=== PATIENT | male | born 1965 | race Caucasian/White ===

== ENCOUNTER 2020-09-03 06:36 | Observation (INO) ==
--- NOTE | 2020-07-18 13:55 | PAT Medication Instructions ---
Medication Instructions Date of Service July 18, 2020 Home Medications acetaminophen [Tylenol] 325 mg PO DAILY PRN acetaminophen-codeine [Tylenol-Codeine #3] 1 tab PO TID PRN cholecalciferol (vitamin D3) [Vitamin D3] 25 mcg PO QAM loratadine 10 mg PO DAILY PRN multivitamin 1 tab PO QAM potassium 99 mg PO QAM vitamin B complex 2 tab PO QAM diclofenac sodium [Voltaren] 1 g TOPICAL QID PRN esomeprazole magnesium [Nexium] 40 mg PO QAM STOP taking 24 hours before surgery diclofenac sodium [Voltaren] 1 g TOPICAL QID PRN DO NOT take the morning of surgery cholecalciferol (vitamin D3) [Vitamin D3] 25 mcg PO QAM loratadine 10 mg PO DAILY PRN multivitamin 1 tab PO QAM potassium 99 mg PO QAM vitamin B complex 2 tab PO QAM Take morning of surgery With a small sip of water, OTHERWISE NOTHING TO EAT OR DRINK AFTER MIDNIGHT: acetaminophen [Tylenol] 325 mg PO DAILY PRN (okay to take up to 4 hours prior to surgery if needed) acetaminophen-codeine [Tylenol-Codeine #3] 1 tab PO TID PRN (okay to take up to 4 hours prior to surgery if needed) esomeprazole magnesium [Nexium] 40 mg PO QAM Take evening before surgery acetaminophen [Tylenol] 325 mg PO DAILY PRN (if needed) acetaminophen-codeine [Tylenol-Codeine #3] 1 tab PO TID PRN (if needed) loratadine 10 mg PO DAILY PRN (if needed) Other Notes If you have any questions please call us at [phone] or [phone] or [phone] or [phone]
--- NOTE | 2020-07-24 10:44 | Anesthesiology Consultation ---
Date of Service July 24, 2020 Assessment & Plan (1) Encounter for pre-operative examination: COVID screening: Per assessment on 07/24: Travel screen negative, no known COVID- 19 positive contacts or current COVID-19 related symptoms. 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 No recent COVID positive students per patient. Follows COVID precaution guidelines. Patient fully vaccinated. Surgeon arranging preop COVID testing (scheduled 08/28; [place]). Awaiting results. Chart Review Chart Review: Acceptable Risk for Surgery and Patient seen in Pre Admission Testing Teaching & Discussion Pre-Anesthesia Teaching/Discussion Notes: Instructed NPO after midnight before surgery,except medications with 15 cc of water. Medication instructions provided according to the PAT guidelines. History Surgery Operation Date: 09/03/20 07:00 Proposed Procedures p Right Total Knee Arthroplasty - Krishan Suggs MD Height/Weight Height: 5 ft 8 in Weight: 143.4 kg Allergies Allergy/AdvReac Type Severity Reaction Status Date / Time Latex, Natural Rubber Allergy Unknown Itching Verified 07/24/20 10:42 Medications Home Medications Medication Instructions Recorded Confirmed Last Taken acetaminophen [Tylenol] 325 mg PO DAILY PRN 05/03/20 07/16/20 Unknown acetaminophen-codeine 1 tab PO TID PRN 05/03/20 07/16/20 Unknown [Tylenol-Codeine #3] cholecalciferol (vitamin D3) 25 mcg PO QAM 05/03/20 07/16/20 Unknown [Vitamin D3] loratadine 10 mg PO DAILY PRN 05/03/20 07/16/20 Unknown multivitamin 1 tab PO QAM 05/03/20 07/16/20 Unknown potassium 99 mg PO QAM 05/03/20 07/16/20 Unknown vitamin B complex 2 tab PO QAM 05/03/20 07/16/20 Unknown diclofenac sodium [Voltaren] 1 g TOPICAL QID PRN 07/16/20 07/16/20 Unknown esomeprazole magnesium [Nexium] 40 mg PO QAM 07/16/20 07/16/20 Unknown Past Medical History Medical History Chronic back pain + Neck Chronic shoulder pain GERD (gastroesophageal reflux disease) occasional History of sleep apnea Symptoms "resolved" after weight loss (no formal retesting) Morbid obesity Osteoarthritis Exercise / Class Metabolic Activity II 4-5 Yardwork/Stairs/Walk up hill (one flight of stairs (no chest pain, no sob)) Past Family History Family History Father Esophageal cancer Other No family history of adverse response to anesthesia Past Surgical History Surgical History History of esophagogastroduodenoscopy (EGD) History of gastric bypass + hiatal hernia repair (2014)- 100# weight loss S/P debridement LLE x2 Past Anesthesia History No Hx of Anesthesia Complications and No Family Hx of Anesthesia Complications History of PONV No Hx of PONV and No Hx of Motion Sickness Social History Smoking Status: Former smoker Do You Dip or Chew Tobacco: No Smoking End Date: Quit 15+ years ago Hx Alcohol Use: No Hx Substance Use: No substance use type: does not use Review of Systems Patient denies chest pain, shortness of breath, dyspnea on exertion, fever, chills, cough, wheezing, palpitations. Physical Exam Vital Signs VITALS BP 134/72 P 67 TEMP 98.2 SP02 98%RA RESP 16 PHYSICAL Full cervical extension range of motion. Full TMJ range of motion. TMD 4 finger breaths Mallampati Score 3 Dentition: missing molars, + several crowns Lungs: clear throughout to auscultation Cardiac: regular rate and rhythm, no murmurs noted Spine: normal Carotid arteries: negative bruit Extremities: LLE non-pitting edema (chronic after remote infection/debridements > wears compression stocking) Testing Laboratory Results 07/24/20 11:42 07/24/20 11:42 PT 9.8 Seconds (9.0-12.0) 07/24/20 11:42 INR 1.0 (0.9-1.1) 07/24/20 11:42 APTT 27.4 Seconds (21.0-31.0) 07/24/20 11:42 Blood Type O Positive 07/24/20 11:42 Antibody Screen NEGATIVE 07/24/20 11:42 Electrocardiogram Date: 07/24/20 NSR with sinus arrhythmia at 67bpm. Chest X-Ray Date: 07/24/20 Findings: + NAD
--- NOTE | 2020-07-24 12:15 | XRay Report ---
XR chest Pre-admission PA/Lat CLINICAL HISTORY: Preoperative evaluation. COMPARISON STUDY: No previous studies for comparison. FINDINGS: Lung volumes are normal. Lungs are clear. There is no pneumothorax or pleural effusion. Car diac size is normal. Mediastinal contours are normal. There is no evidence for pulmonary edema. IMPRESSION: No acute cardiopulmonary findings. ACT 112: Negative or not required by law. Electronically signed by: Ashutosh Mao M.D. 07/24/2020 12:14 PM
[2020-07-24 12:28] LABS: Basophils # (auto) 0.04 K/uL (0-0.2); Basophils % (auto) 0.5 %; Eosinophils # (auto) 0.08 K/uL (0-0.5); Hematocrit (blood only) 41.5 % (42-52); Hemoglobin 14.1 g/dL (14.0-18.0); Immature Granulocytes # (auto) 0.01 K/uL (0.00-0.02); Immature Granulocytes % (auto) 0.1 %; Lymphocytes # (auto) 2.27 K/uL (1.2-3.4); Lymphocytes % (auto) 27.8 %; Mean Corpuscular Hemoglobin 29.5 pg (25-34); Mean Corpuscular Volume 86.8 fL (80-100); Mean Platelet Volume 10.2 fL (7.4-10.4); Monocytes # (auto) 0.57 K/uL (0.11-0.59); Neutrophils # (auto) 5.19 K/uL (1.4-6.5); Neutrophils % (auto) 63.6 %; Platelet Count 242 K/uL (130-400); RDW Coefficient of Variation 14.1 % (11.5-14.5); RDW Standard Deviation 44.6 fL (36.4-46.3); Red Blood Count 4.78 M/uL (4.7-6.1); White Blood Count 8.16 K/uL (4.8-10.8)
[2020-07-24 12:39] LABS: BUN Creatinine Ratio 11.9 (10-20); Calcium 8.6 mg/dl (8.5-10.1); Creatinine Clr Calc Pharmacy 130.5 ml/min; Est GFR (African American) 111.3; Potassium 4.2 mmol/L (3.5-5.1)
[2020-07-24 12:40] LABS: C Reactive Protein 0.44 mg/dl (0-0.29); Partial Thromboplastin Time 27.4 Seconds (21.0-31.0); Prothrombin Time 9.8 Seconds (9.0-12.0)
--- NOTE | 2020-07-24 16:41 | Electrocardiogram Report ---
Test Reason : Blood Pressure : / mmHG Vent. Rate : 067 BPM Atrial Rate : 067 BPM P-R Int : 180 ms QRS Dur : 094 ms QT Int : 362 ms P-R-T Axes : 058 076 048 degrees QTc Int : 382 ms Normal sinus rhythm with sinus arrhythmia Normal ECG No previous ECGs available Confirmed by Dimitry Reyna ([id number]) on 07/24/2020 4:40:48 PM Referred By: Krishan Suggs Confirmed By:Dimitry Reyna
--- NOTE | 2020-08-31 14:50 | History and Physical Report ---
DATE OF ADMISSION: 09/03/2020 CHIEF COMPLAINT: Bilateral knee pain and discomfort, right side greater than left. 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 We have been injecting his knees every 3 months for several years. Initially helped him quite a bit. This has become less successful over time. He is having more and more trouble walking and getting around. He has pain all the time, increased as the day goes on. He is having more difficulty standing and teaching due to his pain and discomfort. He was scheduled to have surgery in the past, but had to cancel due to the COVID epidemic. He now would like to proceed with surgical treatment. Of note, the patient does have a history of erysipelas of his left leg debrided about 10 years ago. He has had no subsequent infections or surgeries on this leg. PAST MEDICAL HISTORY: 1. Significant for obesity, status post gastric bypass surgery 2014. 2. Erysipelas infection 2011, left lower extremity. 3. Gastroesophageal reflux disease. 4. Sleep apnea with CPAP machine. PAST SURGICAL HISTORY: Include: 1. Left leg debridement x2 in 2011. 2. Gastric bypass surgery. ALLERGIES: LATEX. CURRENT MEDICATIONS: Include: 1. Tylenol with Codeine. 2. Multivitamin. 3. B12. 4. Vitamin D supplements. 5. Potassium supplements. 6. Loratadine. SOCIAL HISTORY: A 55-year-old male. He teaches at [employer]. Lives in [place]. He is . Does not smoke. No significant alcohol intake. FAMILY HISTORY: Noncontributory. REVIEW OF SYSTEMS: Negative for diabetes, neurologic problem, vascular problems or bleeding disorders. He does have this history of left leg infection in the past. He has had no problems in the past 10 years. He does wear compression stocking. He cannot take NSAIDs due to gastric bypass. PHYSICAL EXAMINATION: GENERAL: Shows a pleasant, fairly large middle-aged male. HEENT: Benign. NECK: Supple, no lymphadenopathy. LUNGS: Clear to auscultation. HEART: Has a regular rate and rhythm. ABDOMEN: Soft, nontender, nondistended. EXTREMITIES: Grossly neurovascularly intact except as follows: Examination of the right knee reveals the patient walks with a bit of a waddling gait. Fairly neutral alignment to his knee. He has got a moderate sized knee effusion. He has got bony hypertrophy medially and laterally. His knee is pretty stiff with about a 10-degree flexion contracture, and only can bend to 105 degrees. No pain with hip motion. Examination of the left leg reveals the KAMARI stocking in place. Some mild diffuse swelling. Range of motion is 5-110. No instability. X-RAYS: X-rays of the right knee reveal advanced right knee tricompartment DJD. He has got a little bit of joint space remaining. He has got degenerative disease in all 3 compartments. Similar findings on the left side. He also has patellofemoral disease. 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 The right knee is bothering him more than the left. He would like to proceed with surgical treatment. PLAN: We are going to proceed with a right knee replacement. The risks and benefits of this procedure were explained to the patient including but not limited to DVT, PE, , infection, neurological injury, vascular injury, bleeding problem, pain, limited range of motion, stiffness, failure to relieve his symptoms, incomplete relief of symptoms, need for further surgery in future, fracture, leg length inequality, nerve palsy, need for revision surgery. The patient understands and desires to proceed. Informed consent was obtained. He has never had any infections in his right leg, but we will probably use some additional vancomycin just due to his history. We will put this in the cement. I do think he is at slight increased risk of infection, but I think it is small. We did do a sed rate, which is normal. C-reactive protein just very slightly elevated. No signs of current infection. We will be very aggressive as far as edema control using TEDs and SCDs. He is planning to do outpatient therapy and be discharged to home.
[~2020-09-03 06:36] MED LIST: ACETAMINOPHEN 500 MG TAB PO SCH; BUPIVACAINE 0.5 % 5 MG/1 ML PF 10ML VIAL ONE; BUPIVACAINE LIPOSOME/PF 266 MG, BUPIVACAINE/EPINEPHRINE 50 ML, SODIUM CHLORIDE 0.9% 30 ... INFIL SCH; EPINEPHrine INJ 1 MG/ML AMP ONE; FAMOTIDINE 20 MG TAB PO SCH; GABAPENTIN 600 MG DOSE PO SCH; LR 500ML BOLUS, THEN 15ML/HR IV SCH; LR 60ML/HR IV SCH; METOCLOPRAMIDE HCL 10 MG TABLET PO SCH; ROPIVACAINE 0.5% 5 MG/ML 30 ML VIAL ONE; Scopolamine 1 MG TDSY TD SCH; TRANEXAMIC ACID 1,000 MG **IV Intra-op IV SCH
--- NOTE | 2020-09-03 06:56 | History & Physical Bridge Note ---
Date of Service September 03, 2020 History & Physical Bridge Note I have examined the patient, reviewed the History & Physical and in the interval since the performance of the History & Physical I have noted the following changes of clinical significance: no changes noted
[2020-09-03] MEDS ORDERED: PROPOFOL IV EMULSION 10 MG/ML 20 ML VIAL IV ONE ×2 (07:15→09:20)
[2020-09-03] MEDS ORDERED: fentaNYL citrate 100 MCG/2 ML VIAL ONE ×3 (07:16→09:42)
[2020-09-03] MEDS ORDERED: MIDAZOLAM HCL 1 MG/ML 2ML VIAL ONE (07:16)
[2020-09-03] MEDS ORDERED: BETAMETH SOD PHOS/ACETATE IA 6 MG/ML IM ONE (08:09)
[2020-09-03] MEDS ORDERED: SODIUM CHLORIDE 0.9% PF 50 ML VIAL ONE (08:44)
[2020-09-03] MEDS ORDERED: BUPIVACAINE LIPOSOME 1.3% 266 MG/20 ML VIAL ONE (08:44)
[2020-09-03] MEDS ORDERED: VANCOMYCIN HCL 1000MG/20ML VIAL ONE (08:45)
[2020-09-03] MEDS ORDERED: BUPIVACAINE 0.25% 30 ML VIAL ONE (08:45)
[2020-09-03] MEDS ORDERED: BUPIVACAINE 0.5 % 5 MG/1 ML MPF 30ML VIAL ONE (08:45)
[2020-09-03] MEDS ORDERED: EPINEPHrine INJ 1 MG/ML AMP ONE (08:45)
--- NOTE | 2020-09-03 08:46 | History & Physical Bridge Note ---
Date of Service September 03, 2020 History & Physical Bridge Note I have examined the patient, reviewed the History & Physical and in the interval since the performance of the History & Physical I have noted the following changes of clinical significance: no changes noted. Patient requesting left knee injection while under anesthesia. Will inject left knee in OR.
[2020-09-03] MEDS ORDERED: ONDANSETRON INJ 2 MG/ML 2 ML VIAL ONE (09:20)
[2020-09-03] MEDS ORDERED: DEXAMETHASONE SOD INJ 4 MG/ML VIAL ONE (09:20)
[2020-09-03] MEDS ORDERED: SUCCINYLCHOLINE CHLORIDE 20 MG/ML 10 ML VIAL IV ONE (09:20)
[2020-09-03] MEDS ORDERED: FLUMAZENIL 0.1 MG/1 ML 10 ML VIAL IV PRN (09:38)
[2020-09-03] MEDS ORDERED: HYDROmorphone INJ 1 MG/ML SYRINGE IV PRN (09:38)
[2020-09-03] MEDS ORDERED: PROMETHAZINE HCL 12.5 MG in SODIUM CHLORIDE 0.9% 50 ML IV PRN (09:38)
[2020-09-03] MEDS ORDERED: LABETALOL HCL IV 5 MG/ML 20ML IV PRN (09:38)
[2020-09-03] MEDS ORDERED: ePHEDrine sulfate 50 MG/ML AMP IV PRN (09:38)
[2020-09-03] MEDS ORDERED: NALOXONE HCL 0.4 MG/1 ML VIAL/CARP IV PRN ×2 (09:38→12:46)
[2020-09-03] MEDS ORDERED: fentaNYL citrate 100 MCG/2 ML VIAL IV PRN (09:38)
[2020-09-03] MEDS ORDERED: ATROPINE SULFATE 0.1 MG/ML 10ML SYR IV PRN (09:38)
[2020-09-03] MEDS ORDERED: ONDANSETRON INJ 2 MG/ML 2 ML VIAL IV PRN ×2 (09:38→12:46)
[2020-09-03] MEDS ORDERED: HYDROmorphone INJ 2 MG/ML SYR/VIAL ONE (09:54)
--- NOTE | 2020-09-03 11:22 | Operative Report ---
Post Operative Report Pre & Post Diagnosis Operation Date: 09/03/20 08:50 Pre-Op Diagnosis: Right Knee Advanced Degenerative Joint Disease, Bilateral Knee Pain and DJD Post-Op Diagnosis: Right Knee Advanced Degenerative Joint Disease, Bilateral Knee Pain and DJD I identified the patient and participated in the time-out.: Yes Procedure Operation Date: 09/03/20 08:50 Actual Procedures p Right Total Knee Arthroplasty(Left) - Krishan Suggs MD s Injection Left Knee(Left) - Krishan Suggs MD Surgeon Krishan Suggs MD Clinical Nurse Educator ZULEMA Roche Estimated Blood Loss 50 Findings Consistent with Post-Op Diagnosis Operative findings revealed advanced tricompartment DJD of the right knee. He had a very large central area of complete cartilage loss of lateral femoral condyle. He had extensive eburnation of the patella and the trochlea. He had some spotty grade 4 changes medially. Moderate-sized joint effusion. Large soft tissue envelope. Fluids 600 cc Specimens Right knee sent for pathology. Anesthesia Type General Regional Complications none Disposition Accompanied Patient To Recovery: No Disposition: Recovery Room Indications Patient is a 55-year-old gentleman is had a long history of bilateral knee pain and discomfort DJD. I been treating him over the years with injections which became less successful over time. He is actually scheduled for surgery in the past but had to be canceled due to the Covid epidemic. Now presents for surgical treatment. Got bilateral knee pain and wanted a an injection into his left knee at the same time. Description of Procedure Operative implants consist of: 1. Biomet Vanguard size 65 right posterior stabilized femoral component. 2. Biomet size 71 tibial tray. 3. 10 mm posterior stabilized polyethylene insert. 4. 31 x 8 all polypatella. The patient was taken to the operating, identified, placed on the operating table supine position but all contractors were properly padded. IV antibiotics tried by anesthesia team. A spinal anesthetic had been attempted in the holding area but unsuccessful. An abductor canal block had been provided in the holding area. A general anesthetic was employed by anesthesia team. Right thigh turn was then placed in the right lower extremities and prepped and draped in usual sterile fashion. The right leg was elevated exsanguinated with use of an Esmarch and tourniquet placed at 350 mmHg. An anterior approach to the right knee was then performed through longitudinal incision centered over the patella. Sharp dissection carried through subcutaneous this down the extensor mechanism. A medial parapatellar arthrotomy incision was made. Some subperiosteal dissection was carried out medially. The fat pad was resected from each patella tendon. Lateral patellofemoral ligament was released. Patella was subluxated laterally. The knee was flexed. The osteophytes were taken off distal femur. The ACL and PCL were then released from distal femur and the tibia subluxated anteriorly. The external tibial alignment jig was then placed in the interface the tibia adjusted 12 mm medially. The proximal tibial cut was then made to remove about 3 to 4 mm of bone from the medial side. Tibia sized to a size 71. We did downsize this in order to get proper rotation. Attention drawn the femur. The distal femur then with a sharp drop with intramedullary canal was suction. A right 5 degree valgus cutting guide was placed. Distal femoral cutting block was pinned in place. Distal femoral cut was made to take an additional 3 mm of bone off distal femur. Femur was then sized to a size 65. Sized exactly to a 65. The AP cutting block was pinned parallel to the epicondylar axis which was 5 degrees of external rotation. Anterior cut, anterior chamfer, posterior cut, posterior chamfer cuts were made. The box cutting guide was placed in just slight lateral and the box cut was made. The knee was flexed. The remnants of the medial and lateral menisci were excised. The osteophytes were taken off the posterior aspect of the femur. Trial femoral component was placed. The tibial tray was pinned in maximum external rotation and the drill and stem punch were used to create defect in proximal tibia for the tibial tray. Knee was then trialed and 10 mm insert fit most appropriately. Attention drawn the patella. The patella was cleaned of all soft tissues. Patella was very eccentrically worn. It was approximately 18 mm in thickness and some spots in about 12 another's. We cut this down to about 12 mm in thickness. Was sized to a size 31 patella. The lug holes were drilled for the 31 patella. The lateral osteophyte was removed. Patella button was placed. Knee was taken through range of motion and the patella tracked nicely with no thumbs test. Attention drawn to place the permanent components. All trial components were removed. Bone plug was placed in the distal femur limit blood loss put a double batch Palacos G cement was mixed. A Biomet Vanguard size 65 right posterior stabilized femoral component, size 71 tibial tray, a 10 mm posterior stabilized polyethylene insert, and a 31 x 8 all polypatella were then cemented in place. Knee was brought out in full extension total cement hardened. Final cement check was then performed. The pericapsular tissues were injected with a total of 100 cc of combination of 20 cc of Exparel, 30 cc normal saline, 50 cc of quarter percent Marcaine with epinephrine. Patient did receive 1 g tranexamic acid but the tourniquet was then let down for turn time 66 minutes. Hemostasis assured use electrocautery. Extensor mechanism closed with combination 1 PDS suture #1 Vicryl suture in a fig [id number] fashion with extensor mechanism checked found to be intact with subcutaneous tissue then closed with 2 Dexon suture in a buried knot fashion. Skin was closed skin cedrick. Legs then cleaned dried a sterile dressing was Xeroform, 4 x 4's, sterile cast padding, Corona bandage were applied. The patient then brought out of general anesthesia and transferred to the recovery room in stable condition. Patient tolerated procedure well and there were no complications. Juan Roche, my physician personal care assistant, was present for the entire procedure. His assistance was essential and required for appropriate patient positioning, prepping and draping, surgical exposure, performing the technical details of the operation, placement the implants, closure of the wound, and placement of the sterile bandage. I attest to the content of the Intraoperative Record and any orders documented therein. Any exceptions are noted below.
--- NOTE | 2020-09-03 11:23 | Operative Report ---
Post Operative Report Pre & Post Diagnosis Operation Date: 09/03/20 08:50 Pre-Op Diagnosis: Right Knee Advanced Degenerative Joint Disease, Bilateral Knee Pain Post-Op Diagnosis: Right Knee Advanced Degenerative Joint Disease, Bilateral Knee Pain I identified the patient and participated in the time-out.: Yes Procedure Operation Date: 09/03/20 08:50 Actual Procedures p Right Total Knee Arthroplasty(Left) - Krishan Sugsg MD s Injection Left Knee(Left) - Krishan Suggs MD Surgeon Krishan Suggs MD Medicare Coordinator ZULEMA Roche Estimated Blood Loss 50 Findings Consistent with Post-Op Diagnosis Specimens Right knee sent for pathology. Anesthesia Type General Regional Description of Procedure This is an addendum to the previously dictated operative report on Jose Patel from earlier today. We also did an intra-articular injection to the left knee at the beginning of the procedure. At the beginning of the procedure the patient's left knee was prepped with alcohol. 2 cc of Celestone HC Marcaine inject the left knee in sterile fashion with the patient tolerated procedure well and there are no complications. I attest to the content of the Intraoperative Record and any orders documented therein. Any exceptions are noted below.
--- NOTE | 2020-09-03 11:57 | Anesthesiology Progress Note ---
Date of Service September 03, 2020 Anesthesia Post Procedure Vital Signs Vital Signs: Temp Pulse Resp BP Pulse Ox 09/03/20 11:41 36.6 C 71 18 148/88 H 100 09/03/20 11:31 36.6 C 83 18 128/98 99 09/03/20 11:21 36.4 C L 84 15 121/91 99 09/03/20 11:11 36.2 C L 85 14 162/85 H 99 09/03/20 07:14 37.0 C 78 18 150/84 H 97 Pain Intensity Right Knee: Pain Intensity: 7 Transfer of Care Handoff Completed per policy Notes Mental Status: alert / awake / arousable Patient Amnestic to Procedure: Yes Nausea / Vomiting: adequately controlled Pain: adequately controlled Airway Patency, RR, SpO2: stable & adequate BP & HR: stable & adequate Hydration State: stable & adequate Anesthetic Complications: no major complications apparent
[2020-09-03] MEDS ORDERED: LORATADINE 10 MG TAB PO PRN (12:46)
[2020-09-03] MEDS ORDERED: diphenhydrAMINE Capsule 25 MG CAP PO PRN (12:46)
[2020-09-03] MEDS ORDERED: METOCLOPRAMIDE HCL INJ 5 MG/ML 2 ML VIAL IV PRN (12:46)
[2020-09-03] MEDS ORDERED: HYDROmorphone INJ 0.5 MG/0.5 ML SYR IV PRN (12:46)
[2020-09-03] MEDS ORDERED: ALUMINUM/MAGNESIUM SUSP 30 ML UDC PO PRN (12:46)
[2020-09-03] MEDS ORDERED: MAGNESIUM HYDROXIDE SUSP 30 ML UDC PO PRN (12:46)
[2020-09-03] MEDS ORDERED: bisacodyL 10 MG SUPP PR PRN (12:46)
[2020-09-03] MEDS ORDERED: TAMSULOSIN HCL 0.4 MG CAP PO PRN (12:46)
[2020-09-03] MEDS: KETOROLAC 30 MG/ML VIAL IV SCH ×3 (13:10→23:41)
[2020-09-03] MEDS: SODIUM CHLORIDE 0.9% 1000ML 1,000 ML IV SCH ×2 (13:10→17:51)
--- NOTE | 2020-09-03 13:14 | XRay Report ---
RIGHT KNEE 2 VIEWS History: Right total knee arthroplasty. Degenerative arthritis. Postop. FINDINGS: The patient is status post a right total knee arthroplasty. The hardware is intact. No frac ture or dislocation. Skin cedrick are in place. IMPRESSION: Right total knee arthroplasty. No evidence for hardware complication. ACT 112: Negative or not required by law. Electronically signed by: Yogi Peguero M.D. 09/03/2020 1:13 PM
[2020-09-03] MEDS: oxyCODONE HCL IR 5 MG TAB (IMMEDIATE RELEASE) PO PRN ×2 (13:15→19:29)
[2020-09-03] MEDS: Scopolamine CHECK PATCH PLACEMENT SCH ×2 (16:49→23:41)
[2020-09-03] MEDS: ACETAMINOPHEN 500 MG TAB PO SCH ×2 (16:49→23:44)
[2020-09-03] MEDS: ASCORBIC ACID 500 MG TAB PO SCH (16:50)
[2020-09-03] MEDS ORDERED: TRANEXAMIC ACID / 0.7% NACL 1,000 MG/100 ML BAG IV SCH (17:30)
[2020-09-03] MEDS: ceFAZolin 2000MG 2,000 MG/15 ML SYR IV SCH (17:50)
--- NOTE | 2020-09-03 18:48 | Progress Notes ---
DATE OF SERVICE: 09/03/2020. SUBJECTIVE: A 55-year-old gentleman postop from a right knee replacement and left knee injection. H e has done relatively well. Having some moderate amount of pain. Took some pain medicines and seems to be doing better. No chest pain or shortness of breath. Not feeling dizzy or lightheaded. OBJECTIVE: VITAL SIGNS: Temperature is 36.7. Vital signs stable. GENERAL: Physical examination shows a pleasant middle-aged male. He is sitting up in bed, looks marcin sonably comfortable this afternoon. LUNGS: Clear to auscultation. HEART: Regular rate and rhythm. ABDOMEN: Soft, nontender, nondistended. EXTREMITIES: Grossly neurovascularly intact except as follows. Examination of the right leg reveals the leg in dressing to be well aligned. Dressing is clean, dry and intact. He can dorsiflex and plantarflex his foot appropriately. He is neurologically intact. X-rays of the right knee from recovery room reviewed, it shows a cemented posterior stabilized total knee arthroplasty. Components remain in good position. No signs of problems. ASSESSMENT: A 55-year-old gentleman postop from a right knee replacement and the left knee injection , doing okay. Pain seems to be under reasonable control. He is neurologically intact. He has been taking some narcotics preoperatively, which are going to make that pain control, a little bit more di fficult. PLAN: 1. DVT prophylaxis include thigh-high KAMARI SCDs and aspirin twice a day. 2. PT, OT weightbear as tolerated, right total knee protocol. 3. Pain control, doing well with current pain regimen. 4. IV antibiotics x24 hours. 5. Disposition. Plan is to discharge him to home once recovered. He is going to go to outpatient judith. Job ID: [id number]
[2020-09-03] MEDS: DOCUSATE SODIUM 100 MG CAP PO SCH (21:09)
[2020-09-03] MEDS: ASPIRIN 81 MG ECTAB PO SCH (21:09)
[2020-09-03] MEDS: SENNA 8.6 MG TAB PO SCH (21:10)
[2020-09-03] MEDS: TAPENTADOL HCL ER 50 MG TABCR PO SCH (21:16)
[2020-09-04] MEDS: SODIUM CHLORIDE 0.9% 1000ML 1,000 ML IV SCH (01:05)
[2020-09-04] MEDS: ceFAZolin 2000MG 2,000 MG/15 ML SYR IV SCH (02:04)
[2020-09-04] MEDS: KETOROLAC 30 MG/ML VIAL IV SCH ×3 (05:40→17:08)
[2020-09-04 06:17] LABS: Hematocrit (blood only) 35.5 % (42-52); Hemoglobin 11.7 g/dL (14.0-18.0); Mean Corpuscular Hemoglobin 29.6 pg (25-34); Mean Corpuscular Volume 89.9 fL (80-100); Mean Platelet Volume 10.5 fL (7.4-10.4); Platelet Count 213 K/uL (130-400); RDW Coefficient of Variation 14.1 % (11.5-14.5); RDW Standard Deviation 46.3 fL (36.4-46.3); Red Blood Count 3.95 M/uL (4.7-6.1); White Blood Count 14.28 K/uL (4.8-10.8)
[2020-09-04 06:35] LABS: BUN Creatinine Ratio 16.3 (10-20); Calcium 8.7 mg/dl (8.5-10.1); Creatinine Clr Calc Pharmacy 135.7 ml/min; Est GFR (African American) 112.4 ml/min; Est GFR (Non-African American) 96.9 ml/min; Potassium 4.5 mmol/L (3.5-5.1)
[2020-09-04] MEDS: ACETAMINOPHEN 500 MG TAB PO SCH ×2 (07:32→15:49)
[2020-09-04] MEDS: Scopolamine CHECK PATCH PLACEMENT SCH ×2 (07:32→15:49)
[2020-09-04] MEDS: ASCORBIC ACID 500 MG TAB PO SCH ×2 (07:33→15:49)
--- NOTE | 2020-09-04 07:54 | Orthopedic Progress Note ---
Date of Service September 04, 2020 Assessment & Plan (1) Status post total right knee replacement: DVT prophylaxis with teds, scd's and aspirin. Pain is reasonably controlled. PT/OT Discharge planning: Possibly discharge home today if he does well with PT. He is planning on doing outpatient therapy with Kareen. He was instructed on dressing change tomorrow and importance of KAMARI stockings. Subjective . POD #1 from right tka. He is having some knee pain but it's not terrible he said. No other complaints. Review of Systems All systems reviewed & are unremarkable except as noted in HPI & below. Physical Exam . alert and oriented. NAD Right leg: Dressing clean, dry, intact. He can Dorsiflex and plantarflex. Cannot really do a straight leg raise now. NVI Results & Data Results & Data Laboratory Results . Diagnostic Findings . PG Care Time/CCT Total # of Minutes Spent Total Time Spent with Patient: Total time spent is greater than 50% in coordination of care (as documented) at patient's floor/unit and/or counseling patient: Coding Level of Care Code 90220 Post Operative Follow-Up Diagnoses Status post total right knee replacement Z96.651
[2020-09-04] MEDS ORDERED: dexAMETHasone 10 MG in SYRINGE 0 ML IV SCH (08:00)
[2020-09-04] MEDS: ASPIRIN 81 MG ECTAB PO SCH ×2 (08:38→20:24)
[2020-09-04] MEDS: MULTIVITAMIN TAB PO SCH (08:39)
[2020-09-04] MEDS: DOCUSATE SODIUM 100 MG CAP PO SCH ×2 (08:39→20:22)
[2020-09-04] MEDS: TAPENTADOL HCL ER 50 MG TABCR PO SCH ×2 (08:39→20:26)
[2020-09-04] MEDS: VITAMIN B COMPLEX TAB PO SCH (08:39)
[2020-09-04] MEDS: PANTOprazole 40 MG TAB PO SCH (08:39)
[2020-09-04] MEDS: CHOLECALCIFEROL 1,000 UNITS 25 MCG TAB PO SCH (08:40)
[2020-09-04] MEDS ORDERED: NON-FORMULARY MEDICATION (Potassium 99 MG) PO SCH (09:00)
[2020-09-04] MEDS ORDERED: MULTIVITAMIN TAB PO SCH (09:00)
[2020-09-04] MEDS: oxyCODONE HCL IR 5 MG TAB (IMMEDIATE RELEASE) PO PRN ×2 (11:02→17:08)
[2020-09-04] MEDS: SENNA 8.6 MG TAB PO SCH (20:23)
[2020-09-05] MEDS: ACETAMINOPHEN 500 MG TAB PO SCH ×2 (00:35→07:19)
[2020-09-05] MEDS: KETOROLAC 30 MG/ML VIAL IV SCH ×2 (00:36→05:44)
[2020-09-05] MEDS: Scopolamine CHECK PATCH PLACEMENT SCH ×2 (00:37→07:19)
--- NOTE | 2020-09-05 07:11 | Orthopedic Progress Note ---
Date of Service September 05, 2020 Assessment & Plan (1) Status post total right knee replacement: Dvt prophylaxis: teds, scds, and aspirin Pain controlled. PT/OT Discharge planning: home likely today after PT. Follow up in [address] Suggs. Subjective .POD #2 from right tka. He had a tough time with stairs in PT yesterday and wasn't ready to go home. His pain is controlled. He changed the dressing and is feeling better today. No other complaints. Review of Systems All systems reviewed & are unremarkable except as noted in HPI & below. Physical Exam .alert and oriented. Out of bed and sitting in the chair. Right leg: Incision intact, cedrick intact. Very little dried blood on stockings. He can lift his leg but can't complete extend his knee. He can dorsiflex and plantarflex. NVI Results & Data Results & Data Laboratory Results . Diagnostic Findings . PG Care Time/CCT Total # of Minutes Spent Total Time Spent with Patient: Total time spent is greater than 50% in coordination of care (as documented) at patient's floor/unit and/or counseling patient: Coding Level of Care Code 67314 Post Operative Follow-Up Diagnoses Status post total right knee replacement Z96.651
[2020-09-05] MEDS: TAPENTADOL HCL ER 50 MG TABCR PO SCH (08:24)
[2020-09-05] MEDS: oxyCODONE HCL IR 5 MG TAB (IMMEDIATE RELEASE) PO PRN (08:24)
[2020-09-05] MEDS: ASCORBIC ACID 500 MG TAB PO SCH (08:25)
[2020-09-05] MEDS: VITAMIN B COMPLEX TAB PO SCH (08:25)
[2020-09-05] MEDS: ASPIRIN 81 MG ECTAB PO SCH (08:25)
[2020-09-05] MEDS: CHOLECALCIFEROL 1,000 UNITS 25 MCG TAB PO SCH (08:25)
[2020-09-05] MEDS: PANTOprazole 40 MG TAB PO SCH (08:26)
[2020-09-05] MEDS: DOCUSATE SODIUM 100 MG CAP PO SCH (08:26)
[2020-09-05] MEDS: MULTIVITAMIN TAB PO SCH (08:26)
--- NOTE | 2020-09-06 14:57 | Discharge Summary ---
Date of Service September 06, 2020 Discharge Data Procedures Performed Operation Date: 09/03/20 08:50 Actual Procedures p Right Total Knee Arthroplasty(Left) - Krishan Suggs MD s Injection Left Knee(Left) - Krishan Suggs MD Hospital Course (1) Status post total right knee replacement: 55 year old patient admitted on 09/03/20 and underwent total knee arthroplasty. He tolerated the procedure well and there were no complications. Transferred to the PACU post op and later to the orthopedic floor for further care. He was given ancef for antibiotic prophylaxis. He was also given KAMARI stockings, SCDs, and aspirin for DVT prophylaxis. Hemoglobin, hematocrit, and vital signs were monitored during her hospital stay and remained stable. Did not require any blood transfusions. There were no complications during her hospital stay. By post op day #2 the patient was tolerating a regular diet, pain was reasonably controlled with oral pain medicine, and was participating in physical therapy. On post op day #2 the patient was discharged home. He was given printed discharge instructions including prescriptions for extra strength tylenol, aspirin, and oxycodone. Continue physical therapy, weight bearing as tolerated. Continue KAMARI stockings. Follow up approximately 2 weeks post op or sooner if there are problems or concerns. Coding Level of Care Code None Diagnoses Status post total right knee replacement Z96.651
== END 2020-09-05 12:04 | disposition home or self-care (01) ==
LOC: ASU 06:36 → 3E 06:36
DX: Z79.899 Other long term (current) drug therapy; E66.01 Morbid (severe) obesity due to excess calories; G47.30 Sleep apnea, unspecified; Z99.89 Dependence on other enabling machines and devices; Z91.040 Latex allergy status; K21.9 Gastro-esophageal reflux disease without esophagitis; Z87.891 Personal history of nicotine dependence; Z20.822 Contact with and (suspected) exposure to COVID-19; M17.0 Bilateral primary osteoarthritis of knee; Z98.84 Bariatric surgery status; Z68.42 Body mass index [BMI] 45.0-49.9, adult; M65.9 Synovitis and tenosynovitis, unspecified